=== PATIENT | female | born 1985 | race Two or more races ===

== ENCOUNTER 2023-05-22 12:48 | Outpatient (CLI) | payer OTHER | END 2023-05-22 13:28 | disposition home or self-care (01) | LOC: SONOGRAMA 12:48 | PROVIDERS: ATTEND General Practice | DX: E04.2 Nontoxic multinodular goiter (principal); E55.9 Vitamin D deficiency, unspecified; E56.8 Deficiency of other vitamins; Z13.1 Encounter for screening for diabetes mellitus; Z13.220 Encounter for screening for lipoid disorders; Z13.228 Encounter for screening for other metabolic disorders; Z13.29 Encounter for screening for other suspected endocrine disorder ==

== ENCOUNTER → 2023-05-23 08:27 | Outpatient (CLI) | payer OTHER ==
[2023-05-23 09:06] LABS: PH,URINE 5.5 (5.0-8.0); URINE APPEARANCE Clear; URINE BILIRRUBIN Negative (NEGATIVE); URINE BLOOD Moderate; URINE COLOR Yellow; URINE GLUCOSE Negative (NEGATIVE); URINE LEUKOCYTE Negative; URINE NITRATE Negative; URINE PROTEIN Negative (NEGATIVE); URINE UROBILINOGEN 0.2 E.U./dl
[2023-05-23 09:08] LABS: URINE BACTERIA 327.5 uL (0.0-1933); URINE EPITHELIAL CELLS 11.2 uL (0.0-38.8); URINE RBC 5.7 uL (0.0-20.8); URINE WBC 3.5 uL (0.0-23.2)
[2023-05-23 09:25] LABS: HEMATOCRIT 36.4 % (36.0-45.00); HEMOGLOBIN 12.8 g/dL (12.0-15.00); MEAN CORPUSCULAR HEMOGLOBIN 31.7 pg (27.00-32.0); MEAN CORPUSCULAR HGB CONC 35.2 g/dl (32.0-36.0); PLATELET COUNT 415 K/uL (150-450); RED BLOOD COUNT 4.05 M/uL (4.00-6.00); RED CELL DISTRIBUTION WIDTH 12.9 % (11.5-14.5)
[2023-05-23 09:46] LABS: ALBUMIN 3.8 gm/dL (3.4-5.0); ALKALINE PHOSPHATASE 67 U/L (50-136); ALT/SGPT 21 U/L (12-78); ANION GAP 8 (10.0-20.0); AST/SGOT 15 U/L (15-37); BILIRUBIN TOTAL 0.82 mg/dL (0.3-1.2); BLOOD UREA NITROGEN 11 mg/dL (7-18); BUN CREA RATIO 11 (7.0-25.0); CALCIUM 9.3 mg/dL (8.5-10.1); CARBON DIOXIDE 31 mEq/L (21-32); CHLORIDE 109 mmol/L (98-107); CHOL HDL RATIO 2.8 (0-5.0); CHOLESTEROL 219 mg/dL (0-200); CREATININE SERUM 0.98 mg/dL (0.55-1.02); GFR 64.21; GLOBULINA 3.5 G/DL (2.4-3.5); GLUCOSE FASTING 85 mg/dL (65-100); HDL 78 mg/dl (40-60); LDL 130 mg/dl (0-130); OSMOLALITY SERUM 285 MOSM/KG (275-295); POTASSIUM 4.22 mEq/L (3.5-5.1); SODIUM 144 mmol/L (136-145); T4 FREE 0.95 NG/ML (0.76-1.46); TOTAL PROTEIN 7.3 gm/dL (6.4-8.2); TRIGLYCERIDES 56 mg/dL (0-150); VLDL 11 (0-39)
[2023-05-23 09:47] LABS: C-REACTIVE PROTEIN < 0.29 MG/DL (0.00-0.29)
[2023-05-23 12:16] LABS: T3 TOTAL 0.946 ng/ml (0.846-2.02); VITAMIN D3 25 HYDROXY 41.17 ng/ml (30-120)
[2023-05-24 11:12] LABS: ebv vca igg > 600.0 U/mL (0.0-17.9); vca igm ab < 36.0 U/mL (0.0-35.9)
== END | disposition home or self-care (01) ==
LOC: LAB 08:27
PROVIDERS: ATTEND General Practice
DX: D64.9 Anemia, unspecified (principal); M85.80 Other specified disorders of bone density and structure, unspecified site; E78.5 Hyperlipidemia, unspecified; B82.0 Intestinal helminthiasis, unspecified; E55.9 Vitamin D deficiency, unspecified; E04.2 Nontoxic multinodular goiter; E56.8 Deficiency of other vitamins; Z13.1 Encounter for screening for diabetes mellitus; Z13.220 Encounter for screening for lipoid disorders; Z13.29 Encounter for screening for other suspected endocrine disorder; Z13.228 Encounter for screening for other metabolic disorders

== ENCOUNTER 2023-09-01 11:26 | Outpatient (CLI) | payer OTHER ==
[2023-09-01 12:48] LABS: PH,URINE 5.5 (5.0-8.0); URINE APPEARANCE Clear; URINE BILIRRUBIN Negative (NEGATIVE); URINE BLOOD Small; URINE COLOR Dark Yellow; URINE GLUCOSE Negative (NEGATIVE); URINE LEUKOCYTE Moderate; URINE NITRATE Positive; URINE PROTEIN Negative (NEGATIVE)
[2023-09-01 12:51] LABS: URINE BACTERIA 3100.6 uL (0.0-1933); URINE EPITHELIAL CELLS 28.6 uL (0.0-38.8); URINE RBC 5.4 uL (0.0-20.8); URINE WBC 126.4 uL (0.0-23.2)
== END 2023-09-01 13:26 | disposition home or self-care (01) ==
LOC: LAB 11:26
PROVIDERS: ATTEND Emergency Medicine Pediatric Emergency Medicine
DX: N39.0 Urinary tract infection, site not specified (principal)

== ENCOUNTER 2023-11-22 05:20 | Outpatient (CLI) | payer OTHER | END 2023-11-22 06:00 | disposition home or self-care (01) | LOC: PPH VACUNA 05:20 | PROVIDERS: ATTEND Emergency Medicine Pediatric Emergency Medicine | DX: Z23 Encounter for immunization (principal) ==

== ENCOUNTER → 2023-12-18 | Outpatient (CLI) | payer OTHER | END | disposition home or self-care (01) | LOC: RAD 12:04 | DX: M99.01 Segmental and somatic dysfunction of cervical region (principal); M99.02 Segmental and somatic dysfunction of thoracic region; M99.03 Segmental and somatic dysfunction of lumbar region; M99.04 Segmental and somatic dysfunction of sacral region; M99.05 Segmental and somatic dysfunction of pelvic region ==

== ENCOUNTER → 2024-06-26 | Emergency (ER) | payer OTHER ==
[~2024-06-26] VITALS: Ht 170.2 cm; Wt 81.2 kg
[~2024-06-26] MED LIST: KETOROLAC TROMETHAMINE 60 MG VIAL IM ONE; ORPHENADRINE CITRATE 30 MG/ML AMPUL IM ONE; ORPHENADRINE CITRATE 30 MG/ML AMPUL ONE
[2024-06-26 14:56] VITALS: BP 132/87; O2SAT 98
== END | disposition home or self-care (01) ==
LOC: ER 14:07
DX: S80.02XA Contusion of left knee, initial encounter (principal); S80.01XA Contusion of right knee, initial encounter; W19.XXXA Unspecified fall, initial encounter; Y93.89 Activity, other specified; Y92.89 Other specified places as the place of occurrence of the external cause; Y99.9 Unspecified external cause status

== ENCOUNTER 2024-07-26 08:04 | Outpatient (CLI) | payer OTHER ==
[~2024-07-26 08:04] MED LIST changes: -KETOROLAC TROMETHAMINE 60 MG VIAL IM ONE; +METAXALONE800 MG PO; -ORPHENADRINE CITRATE 30 MG/ML AMPUL IM ONE; -ORPHENADRINE CITRATE 30 MG/ML AMPUL ONE
[2024-07-26 08:46] LABS: BASO % 0.4 % (0.1-1.2); EOS # 0.02 (0.04-0.54); EOS % 0.4 % (0.7-7.0); HEMATOCRIT 35.5 % (34.1-44.9); HEMOGLOBIN 12.3 g/dL (11.2-15.7); LYMPH # 1.87 (1.18-3.74); LYMPH % 40.4 % (19.3-53.1); MEAN CORPUSCULAR HEMOGLOBIN 30.1 pg (25.6-32.2); MONO # 0.24 (0.24-0.82); MONO % 5.2 % (4.7-12.5); NEUT # 2.47 (1.56-6.13); NEUT % 53.4 % (34.0-71.1); PLATELET COUNT 433 K/uL (163-369); RED BLOOD COUNT 4.09 M/uL (3.93-5.22); RED CELL DISTRIBUTION WIDTH 12.2 % (11.6-14.4)
[2024-07-26 09:33] LABS: PH,URINE 5.5 (5.0-8.0); URINE APPEARANCE Clear; URINE BILIRRUBIN Negative (NEGATIVE); URINE BLOOD Negative; URINE COLOR Yellow; URINE GLUCOSE Negative (NEGATIVE); URINE KETONE Trace (NEGATIVE); URINE LEUKOCYTE Small; URINE NITRATE Negative; URINE PROTEIN Negative (NEGATIVE); URINE UROBILINOGEN 0.2 E.U./dl
[2024-07-26 09:34] LABS: URINE BACTERIA 598.4 uL (0.0-1933); URINE EPITHELIAL CELLS 13.6 uL (0.0-38.8); URINE RBC 6.3 uL (0.0-20.8); URINE WBC 20.7 uL (0.0-23.2)
[2024-07-26 09:52] LABS: ALBUMIN 3.8 gm/dL (3.4-5.0); BILIRUBIN TOTAL 1.67 mg/dL (0.3-1.2); CALCIUM 9.5 mg/dL (8.5-10.1); CHOL HDL RATIO 2.5 (0-5.0); CREATININE SERUM 0.84 mg/dL (0.55-1.02); GFR 76.29; GLOBULINA 3.5 G/DL (2.4-3.5); POTASSIUM 4.16 mEq/L (3.5-5.1); TOTAL PROTEIN 7.3 gm/dL (6.4-8.2); TSH 1.11 uIU/mL (0.358-3.74)
[2024-07-26 10:34] LABS: FREE TRIODOTIRONINE 2.1 pg/ml (2.18-3.98)
== END 2024-07-26 08:07 | disposition home or self-care (01) ==
LOC: LAB 08:04
PROVIDERS: ATTEND Internal Medicine
DX: E55.9 Vitamin D deficiency, unspecified (principal); Z68.28 Body mass index [BMI] 28.0-28.9, adult; Z13.1 Encounter for screening for diabetes mellitus; Z13.220 Encounter for screening for lipoid disorders; Z13.29 Encounter for screening for other suspected endocrine disorder; Z82.69 Family history of other diseases of the musculoskeletal system and connective tissue; M79.10 Myalgia, unspecified site